=== PATIENT | female | born 1995 | race Native Hawaiian/Other Pacific Islander ===

== ENCOUNTER 2019-02-10 01:09 | Emergency (ER) | payer MEDICAID ==
[2019-02-10 01:37] VITALS: BP 113/78
--- NOTE | 2019-02-10 02:39 | Emergency Department Report ---
ED ENT HPI - General Chief complaint: Dental/Oral Stated complaint: FACE AND NECK PAIN Time Seen by Provider: 02/10/19 02:32 Source: patient Mode of arrival: Ambulatory Limitations: No Limitations - History of Present Illness Initial comments: 23-year-old female presents to the emergency room for right sided toothache that radiates to the neck and face 2 days. Patient denies any fever chills. Patient reports she's been taken ibuprofen is not helping with her pain. Patient does have braces on. Patient reports she is aware that she has a tooth that needs to be repaired. MD complaint: tooth pain Onset/Timin -: days(s) Location: tooth # (30) Quality: stabbing, aching, sharp Improves with: none Worsens with: eating Context- Dental: poor dental care Associated Symptoms: gum swelling, toothache - Related Data Previous Rx's Medication Instructions Recorded Last Taken Type Cyclobenzaprine [Flexeril 10 MG 10 mg PO TID PRN #12 tab 05/18/13 Unknown Rx TAB] Diazepam [Valium] 10 mg PO Q8H PRN #10 tablet 05/18/13 Unknown Rx traMADol [Ultram 50 MG tab] 1 tab PO Q6H PRN #12 tablet 06/08/13 Unknown Rx Amoxicillin [Trimox] 250 mg PO Q8HR #30 capsule 02/10/19 Unknown Rx Ibuprofen [Motrin 600 MG tab] 600 mg PO Q8H PRN #15 tablet 02/10/19 Unknown Rx Allergies Allergy/AdvReac Type Severity Reaction Status Date / Time No Known Allergies Allergy Unverified 05/18/13 20:11 ED Dental HPI - General Chief complaint: Dental/Oral Stated complaint: FACE AND NECK PAIN Time Seen by Provider: 02/10/19 02:32 Source: patient Mode of arrival: Ambulatory Limitations: No Limitations - Related Data Previous Rx's Medication Instructions Recorded Last Taken Type Cyclobenzaprine [Flexeril 10 MG 10 mg PO TID PRN #12 tab 05/18/13 Unknown Rx TAB] Diazepam [Valium] 10 mg PO Q8H PRN #10 tablet 05/18/13 Unknown Rx traMADol [Ultram 50 MG tab] 1 tab PO Q6H PRN #12 tablet 06/08/13 Unknown Rx Amoxicillin [Trimox] 250 mg PO Q8HR #30 capsule 02/10/19 Unknown Rx Ibuprofen [Motrin 600 MG tab] 600 mg PO Q8H PRN #15 tablet 02/10/19 Unknown Rx Allergies Allergy/AdvReac Type Severity Reaction Status Date / Time No Known Allergies Allergy Unverified 05/18/13 20:11 ED Review of Systems ROS: Stated complaint: FACE AND NECK PAIN Other details as noted in HPI Comment: All other systems reviewed and negative ENT: dental pain ED Past Medical Hx - Past Medical History Previous Medical History?: No Additional medical history: torticolosis - Surgical History Past Surgical History?: No - Social History Smoking Status: Never Smoker Substance Use Type: None - Medications Home Medications: Home Medications Medication Instructions Recorded Confirmed Last Taken Type Cyclobenzaprine [Flexeril 10 MG 10 mg PO TID PRN #12 tab 05/18/13 05/18/13 Unknown Rx TAB] Diazepam [Valium] 10 mg PO Q8H PRN #10 tablet 05/18/13 Unknown Rx traMADol [Ultram 50 MG tab] 1 tab PO Q6H PRN #12 tablet 06/08/13 Unknown Rx Amoxicillin [Trimox] 250 mg PO Q8HR #30 capsule 02/10/19 Unknown Rx Ibuprofen [Motrin 600 MG tab] 600 mg PO Q8H PRN #15 tablet 02/10/19 Unknown Rx ED Physical Exam - General Limitations: No Limitations General appearance: alert, in no apparent distress - Head Head exam: Present: atraumatic, normocephalic - Eye Eye exam: Present: normal appearance - Expanded ENT Exam Expanded Teeth exam: Present: dental caries ED Course Vital Signs 02/10/19 01:32 Temperature 97.5 F L Pulse Rate 80 Respiratory 18 Rate Blood Pressure 113/78 O2 Sat by Pulse 100 Oximetry ED Medical Decision Making - Medical Decision Making 23-year-old female comes in for dental pain. Patient states since then gone on for 2 days. She's taken ibuprofen with no relief. Patient currently has braces on. Patient be placed on amoxicillin ibuprofen and to follow-up with her primary dentist Critical care attestation.: If time is entered above; I have spent that time in minutes in the direct care of this critically ill patient, excluding procedure time. ED Disposition Clinical Impression: Pain, dental Disposition: DC- TO HOME OR SELFCARE Is pt being admited?: No Does the pt Need Aspirin: No Condition: Stable Instructions: Toothache (ED) Additional Instructions: Complete antibiotics as prescribed. Pain medication as needed. Follow up with her dentist in the next 3-4 days. Prescriptions: Amoxicillin [Trimox] 250 mg PO Q8HR #30 capsule Ibuprofen [Motrin 600 MG tab] 600 mg PO Q8H PRN #15 tablet PRN Reason: Pain Referrals: MAURA WILBURN MD [Primary Care Provider] - 3-5 Days [facility] [Outside] - 3-5 Days
== END 2019-02-10 03:17 | disposition home or self-care (01) ==
LOC: ED 01:09
DX: K08.89 Other specified disorders of teeth and supporting structures (principal)
CPT/HCPCS: 99282

== ENCOUNTER 2019-02-17 12:40 | Emergency (ER) | payer MEDICAID ==
--- NOTE | 2019-02-17 12:51 | Emergency Department Report ---
Blank Doc - Documentation Documentation: 23 y o female presents with left sided chest pain radiating down her left arm w ith numbness feeling to arm x 30 mins ago PMH: none labs, ekg, cxr Works at [employer] [facility] eval
[2019-02-17 13:37] LABS: Basophils % (Auto) 0.4 % (0.0-1.8); Eosinophils % (Auto) 0.3 % (0.0-4.3); Hematocrit 42.4 % (30.3-42.9); Hemoglobin 14.5 gm/dl (10.1-14.3); Lymphocytes # (Auto) 1.6 K/mm3 (1.2-5.4); Lymphocytes % (Auto) 18.1 % (13.4-35.0); Mean Corpuscular HGB Conc 34 % (30-34); Mean Corpuscular Volume 84 fl (79-97); Monocytes # (Auto) 0.5 K/mm3 (0.0-0.8); Monocytes % (Auto) 5.5 % (0.0-7.3); Platelet Count 256 K/mm3 (140-440); Red Blood Count 5.06 M/mm3 (3.65-5.03); Red Cell Distribution Width 13.1 % (13.2-15.2)
--- NOTE | 2019-02-17 13:53 | Emergency Department Report ---
ED Chest Pain HPI - General Chief Complaint: Chest Pain Stated Complaint: CHEST PAIN/L ARM PAIN Time Seen by Provider: 02/17/19 12:48 Source: patient Mode of arrival: Ambulatory Limitations: No Limitations - History of Present Illness Initial Comments: 23-year-old female presents to the emergency department with a complaint of some intermittent left-sided chest pains have been going on for the past few days. She denies any trauma or injury to the area. Sometimes the pain worsen or come on with certain movements including turning the steering wheel while driving or lifting her left arm up into the air. She says that the pain will sometimes radiate towards the left arm. She denies any past medical history. She denies any tobacco or illicit drug use. She has not taken anything for her symptoms prior to presentation. No recent travel or sick contacts at home. - Related Data Previous Rx's Medication Instructions Recorded Last Taken Type Cyclobenzaprine [Flexeril 10 MG 10 mg PO TID PRN #12 tab 05/18/13 Unknown Rx TAB] Diazepam [Valium] 10 mg PO Q8H PRN #10 tablet 05/18/13 Unknown Rx traMADol [Ultram 50 MG tab] 1 tab PO Q6H PRN #12 tablet 06/08/13 Unknown Rx Amoxicillin [Trimox] 250 mg PO Q8HR #30 capsule 02/10/19 Unknown Rx Ibuprofen [Motrin 600 MG tab] 600 mg PO Q8H PRN #15 tablet 02/10/19 Unknown Rx Allergies Allergy/AdvReac Type Severity Reaction Status Date / Time No Known Allergies Allergy Unverified 05/18/13 20:11 Heart Score - HEART Score History: Slightly suspicious EKG: Normal Age: < 45 Risk factors: No known risk factors Troponin: < normal limit HEART Score: 0 - Critical Actions Critical Actions: 0-3 pts:0.9-1.7%risk of adverse cardiac event.Candidate for discharge ED Review of Systems ROS: Stated complaint: CHEST PAIN/L ARM PAIN Other details as noted in HPI Comment: All other systems reviewed and negative Constitutional: denies: chills, fever Eyes: denies: eye pain, vision change ENT: denies: ear pain, throat pain Respiratory: denies: cough, wheezing Cardiovascular: chest pain. denies: palpitations Gastrointestinal: denies: abdominal pain, vomiting Genitourinary: denies: dysuria, discharge Musculoskeletal: denies: back pain, arthralgia Skin: denies: rash, lesions Neurological: denies: headache, weakness ED Past Medical Hx - Past Medical History Previous Medical History?: No Additional medical history: torticolosis - Surgical History Past Surgical History?: No - Social History Smoking Status: Never Smoker Substance Use Type: None - Medications Home Medications: Home Medications Medication Instructions Recorded Confirmed Last Taken Type Cyclobenzaprine [Flexeril 10 MG 10 mg PO TID PRN #12 tab 05/18/13 05/18/13 Unknown Rx TAB] Diazepam [Valium] 10 mg PO Q8H PRN #10 tablet 05/18/13 Unknown Rx traMADol [Ultram 50 MG tab] 1 tab PO Q6H PRN #12 tablet 06/08/13 Unknown Rx Amoxicillin [Trimox] 250 mg PO Q8HR #30 capsule 02/10/19 Unknown Rx Ibuprofen [Motrin 600 MG tab] 600 mg PO Q8H PRN #15 tablet 02/10/19 Unknown Rx ED Physical Exam - General Limitations: No Limitations - Other Other exam information: GENERAL: The patient is well-developed well-nourished. HENT: Normocephalic. Atraumatic. Patient has moist mucous membranes. EYES: Extraocular motions are intact. Pupils equal reactive to light bilaterally. NECK: Supple. Trachea is midline. CHEST/LUNGS: Clear to auscultation. There is no respiratory distress noted. There is some reproducible tenderness to palpation along the chest wall without any crepitus or deformity. HEART/CARDIOVASCULAR: Regular. There is no tachycardia. There is no murmur. ABDOMEN: Abdomen is soft, nontender. Patient has normal bowel sounds. There is no abdominal distention. SKIN: Skin is warm and dry. NEURO: The patient is awake, alert, and oriented. The patient is cooperative. The patient has no focal neurologic deficits. The patient has normal speech. MUSCULOSKELETAL: There is no tenderness or deformity. There is no limitation range of motion. Radial pulse +2 over 4 and capillary refill less than 2 s econds to the affected left upper extremity. ED Course Vital Signs 02/17/19 02/17/19 12:48 15:16 Temperature 97.5 F L 98.2 F Pulse Rate 84 86 Respiratory 20 16 Rate Blood Pressure 112/57 Blood Pressure 104/64 [Left] O2 Sat by Pulse 99 100 Oximetry KIM score - Kim Score Age > 65: (0) No Aspirin use within the Past 7 Days: (0) No 3 or more CAD Risk Factors: (0) No 2 or more Angina events in past 24 hrs: (1) Yes (if the pain is considered angina, which is low suspicion for) Known CAD with more than 50% Stenosis: (0) No Elevated Cardiac Markers: (0) No ST Deviation Greater than 0.5mm: (0) No KIM Score: 1 ED Medical Decision Making - Lab Data Result diagrams: 02/17/19 13:06 02/17/19 13:06 - EKG Data -: EKG Interpreted by Me EKG shows normal: sinus rhythm, axis, intervals, QRS complexes, ST-T waves Rate: normal - EKG Data When compared to previous EKG there are: previous EKG unavailable Interpretation: normal EKG - Radiology Data Radiology results: image reviewed interpreted by me: Chest x-ray does not show any acute process. There are no pleural effusions, obvious pneumonia and there is no pneumothorax. - Medical Decision Making This patient presents with a few days of some left-sided chest pain and some lef t arm pain that appears to worsen with certain movements. It is also reproducible to palpation during examination. Heart and lung sounds are normal to auscultation. EKG is normal without any signs of ST elevation MA, ischemia or dysrhythmia. Chest x-ray was also normal without any pneumothorax, pneumonia, pleural effusions, focal consolidation, or any acute process. Patient's labs were unremarkable including a CBC, metabolic panel and a troponin. The patient is low on the well's score criteria and negative on the pulmonary embolism rule out criteria. She is low/negative on the heart score and KIM score. The patient appears safe for discharge home. She was given a shot of Toradol and is feeling improvement upon reevaluation. Vital signs stable throughout her ED course. She will return to the ER with any worsening of her symptoms or any acute distress. - Differential Diagnosis costochondritis, muscle spasm, MA, GERD Critical Care Time: No Critical care attestation.: If time is entered above; I have spent that time in minutes in the direct care of this critically ill patient, excluding procedure time. ED Disposition Clinical Impression: Atypical chest pain, Musculoskeletal chest pain Disposition: TO HOME OR SELFCARE Is pt being admited?: No Condition: Stable Instructions: Noncardiac Chest Pain (ED) Additional Instructions: Please follow up with a primary care physician in the next few days. Return to the emergency Department with any worsening of your symptoms or any acute distress. Referrals: JOANA GUTIERREZ MD [Staff Physician] - 2-3 Days [facility] [Outside] - 2-3 Days Time of Disposition: 15:13
[2019-02-17 14:10] LABS: BUN/Creatinine Ratio 15; Blood Urea Nitrogen 9 mg/dL (7-17); Calcium 9.6 mg/dL (8.4-10.2); Hemolysis Index 14
[2019-02-17] MEDS ORDERED: TORADOL IM ONE (14:28)
--- NOTE | 2019-02-17 15:10 | XRay Report ---
PROCEDURE: XR CHEST ROUTINE 2V TECHNIQUE: PA and lateral chest radiographs were obtained. HISTORY: Chest Pain COMPARISONS: None. FINDINGS: Heart: Normal. Mediastinum/Vessels: Normal. Lungs/Pleural space: Normal. Bony thorax: No acute osseous abnormality. IMPRESSION: Normal examination. This document is electronically signed by Reuben Moctezuma MD., February 17 2019 03:08:58 PM ET
[2019-02-17 15:17] VITALS: BP 104/64
== END 2019-02-17 15:30 | disposition home or self-care (01) ==
LOC: ED 12:40
DX: R07.89 Other chest pain (principal); Z79.899 Other long term (current) drug therapy
CPT/HCPCS: 36415; 71046; 80048; 84484; 84703; 85025; 93005; 93010; 96372; 99283; J1885

== ENCOUNTER 2019-03-24 07:15 | Emergency (ER) | payer MEDICAID ==
[2019-03-24 07:29] VITALS: BP 129/84
== END 2019-03-24 09:05 | disposition left against medical advice (07) ==
LOC: ED 07:15
DX: M43.6 Torticollis (principal); Z53.21 Procedure and treatment not carried out due to patient leaving prior to being seen by health care provider

== ENCOUNTER 2019-03-24 10:32 | Emergency (ER) | payer MEDICAID ==
[2019-03-24 10:40] VITALS: BP 128/69
--- NOTE | 2019-03-24 12:12 | Emergency Department Report ---
ED General Adult HPI - General Chief complaint: Neck Pain/Injury Stated complaint: NECK/HEADACHE PAIN Time Seen by Provider: 03/24/19 12:07 Source: patient Mode of arrival: Ambulatory Limitations: No Limitations - History of Present Illness Initial comments: Patient reports symptoms of nausea, chills, periodic headaches, and some neck stiffness for approximately 2 days. Denies fever. Denies sick contacts. Denies IVDA. -: Gradual, days(s) (approximately 2-3 days) Location: head, neck Radiation: non-radiation Severity scale (0 -10): 1 Quality: aching Consistency: intermittent Improves with: medication (Reports taking Motrin which helps improve symptoms) Worsens with: none Associated Symptoms: headaches, other (reports chills, and nausea). denies: confusion, chest pain, cough, diaphoresis, malaise, rash, seizure, shortness of breath, syncope, weakness - Related Data Previous Rx's Medication Instructions Recorded Last Taken Type Cyclobenzaprine [Flexeril 10 MG 10 mg PO TID PRN #12 tab 05/18/13 Unknown Rx TAB] Diazepam [Valium] 10 mg PO Q8H PRN #10 tablet 05/18/13 Unknown Rx traMADol [Ultram 50 MG tab] 1 tab PO Q6H PRN #12 tablet 06/08/13 Unknown Rx Amoxicillin [Trimox] 250 mg PO Q8HR #30 capsule 02/10/19 Unknown Rx Ibuprofen [Motrin 600 MG tab] 600 mg PO Q8H PRN #15 tablet 02/10/19 Unknown Rx Ibuprofen [Motrin] 400 mg PO Q6H PRN #20 tablet 03/24/19 Unknown Rx Allergies Allergy/AdvReac Type Severity Reaction Status Date / Time No Known Allergies Allergy Unverified 05/18/13 20:11 ED Review of Systems ROS: Stated complaint: NECK/HEADACHE PAIN Other details as noted in HPI Other: GENERAL: Chills. No weight change, fatigue, weakness, fever, or night sweats SKIN: No changes in skin or hair, no itching, no rashes, no jaundice HEAD: No trauma, headache, or visual changes EYES: No blurriness, tearing, itching, acute visual loss, conjunctival discoloration, or scleral icterus EARS: No hearing loss, tinnitus, vertigo, or earache NOSE: No rhinorrhea, stuffiness, sneezing, itching, or epistaxis MOUTH: No bleeding gums, hoarseness, sore throat, or swelling CARDIAC: No new murmur, chest pain, palpitations, dyspnea on exertion, orthopnea, PND, or edema RESPIRATORY: No shortness of breath, wheeze, cough, sputum production, hemoptysis, pneumonia, asthma, bronchitis, or emphysema GI: Nausea. Reports vomited yesterday once. No dysphagia, change in bowel frequency, diarrhea, constipation, bleeding, hematemesis, melena, hematochezia, or abdominal pain URINARY: No frequency, urgency, polyuria, dysuria, hematuria, or incontinence MUSCULOSKELETAL: No muscle weakness, joint stiffness, decrease in range of motion, redness, swelling NEUROLOGIC: Headache mild. No loss of sensation, numbness, tingling, tremors, w eakness, paralysis, seizures HEMATOLOGIC: No anemia, easy bruising, bleeding, petechiae, or purpura ENDOCRINE: No hot or cold intolerance, sweating, polyuria, polydipsia or, polyphagia no thyroid problems PSYCHIATRIC: No change in mood, no anxiety, no depression GENITAL: Female: No change in menstrual regularity, no frequency or dysmenorrhea, no discharge, no bleeding ED Past Medical Hx - Past Medical History Previous Medical History?: No Additional medical history: torticolosis - Surgical History Past Surgical History?: No - Social History Smoking Status: Never Smoker - Medications Home Medications: Home Medications Medication Instructions Recorded Confirmed Last Taken Type Cyclobenzaprine [Flexeril 10 MG 10 mg PO TID PRN #12 tab 05/18/13 05/18/13 Unkno wn Rx TAB] Diazepam [Valium] 10 mg PO Q8H PRN #10 tablet 05/18/13 Unknown Rx traMADol [Ultram 50 MG tab] 1 tab PO Q6H PRN #12 tablet 06/08/13 Unknown Rx Amoxicillin [Trimox] 250 mg PO Q8HR #30 capsule 02/10/19 Unknown Rx Ibuprofen [Motrin 600 MG tab] 600 mg PO Q8H PRN #15 tablet 02/10/19 Unknown Rx Ibuprofen [Motrin] 400 mg PO Q6H PRN #20 tablet 03/24/19 Unknown Rx ED Physical Exam - General Limitations: No Limitations - Other Other exam information: GENERAL: Patient in no acute distress HEAD: Normocephalic, atraumatic EYES: PERRLA, EOM intact, no scleral icterus, no papilledema, no conjunctival hemorrhage, visual lopez and acuity wnl, NOSE: No tenderness, discharge, sinus tenderness MOUTH: No erythema, bleeding, exudate HEART: Regular rate and rhythm, no murmur, S1-S2 are auscultated, pulses are symmetric LUNGS: No wheezing, rales, rhonchi, bilateral breath sounds ABDOMEN: Normal bowel sounds, no tenderness, no rebound, no guarding, no masses, no CVA tenderness MUSCULOSKELETAL: Normal joint range of motion, no redness, no swelling, no tenderness NEUROLOGIC: GCS 15, Alert and Oriented x3, Cranial nerves intact, normal sensation, normal strength, normal gait, no cerebellar deficit, no meningeal signs SKIN: Skin is warm and dry, no wounds, no rashes EARS: No tenderness, discharge, tympanic membrane wnl ED Course Vital Signs 03/24/19 10:39 Temperature 98.1 F Pulse Rate 106 H Respiratory 18 Rate Blood Pressure 128/69 O2 Sat by Pulse 100 Oximetry ED Medical Decision Making - Medical Decision Making Patient comfortable. Plan discharge with conservative treatment possible viral syndrome and outpatient follow up. Patient agrees with plan and will return if any symptoms worsen. Critical care attestation.: If time is entered above; I have spent that time in minutes in the direct care of this critically ill patient, excluding procedure time. ED Disposition Clinical Impression: Viral syndrome Disposition: -01 TO HOME OR SELFCARE Is pt being admited?: No Condition: Stable Instructions: Viral Syndrome (ED) Prescriptions: Ibuprofen [Motrin] 400 mg PO Q6H PRN #20 tablet PRN Reason: Pain, Mild (1-3) Referrals: ADELIA ROA MD [Primary Care Provider] - 2-3 Days [facility] [Outside] - 2-3 Days Time of Disposition: 12:08
== END 2019-03-24 12:25 | disposition home or self-care (01) ==
LOC: ED 10:32
DX: B34.9 Viral infection, unspecified (principal); Z79.899 Other long term (current) drug therapy
CPT/HCPCS: 99282

== ENCOUNTER 2019-04-01 07:44 | Emergency (ER) | payer MEDICAID ==
[2019-04-01 07:50] VITALS: BP 122/72
--- NOTE | 2019-04-01 08:18 | Emergency Department Report ---
ED General Adult HPI - General Chief complaint: Allergic Reaction Stated complaint: HIVES/NECK/THROAT PAIN/CHILLS Time Seen by Provider: 04/01/19 08:10 Source: patient Mode of arrival: Ambulatory Limitations: No Limitations - History of Present Illness Initial comments: Reason is 23 years old female, nontoxic with no significant past medical history. Patient presented to the ER complaining of fever, generalized body ache, rash diffuse, runny nose cough and congestion with sore throats. Patient denied any nausea or vomiting. Patient was seen here 7 days ago and diagnosed with a viral syndrome, she stated that her symptoms improved but yesterday she started developing the current symptoms. - Related Data Previous Rx's Medication Instructions Recorded Last Taken Type Cyclobenzaprine [Flexeril 10 MG 10 mg PO TID PRN #12 tab 05/18/13 Unknown Rx TAB] Diazepam [Valium] 10 mg PO Q8H PRN #10 tablet 05/18/13 Unknown Rx traMADol [Ultram 50 MG tab] 1 tab PO Q6H PRN #12 tablet 06/08/13 Unknown Rx Amoxicillin [Trimox] 250 mg PO Q8HR #30 capsule 02/10/19 Unknown Rx Ibuprofen [Motrin 600 MG tab] 600 mg PO Q8H PRN #15 tablet 02/10/19 Unknown Rx Ibuprofen [Motrin] 400 mg PO Q6H PRN #20 tablet 03/24/19 Unknown Rx Allergies Allergy/AdvReac Type Severity Reaction Status Date / Time No Known Allergies Allergy Unverified 05/18/13 20:11 ED Review of Systems ROS: Stated complaint: HIVES/NECK/THROAT PAIN/CHILLS Other details as noted in HPI Comment: All other systems reviewed and negative Constitutional: chills, fever ENT: throat pain, congestion Respiratory: cough Cardiovascular: denies: chest pain, palpitations Gastrointestinal: denies: abdominal pain, nausea, vomiting Skin: rash ED Past Medical Hx - Past Medical History Previous Medical History?: No Additional medical history: torticolosis - Surgical History Past Surgical History?: No - Social History Smoking Status: Never Smoker Substance Use Type: None - Medications Home Medications: Home Medications Medication Instructions Recorded Confirmed Last Taken Type Cyclobenzaprine [Flexeril 10 MG 10 mg PO TID PRN #12 tab 05/18/13 05/18/13 Unknown Rx TAB] Diazepam [Valium] 10 mg PO Q8H PRN #10 tablet 05/18/13 Unknown Rx traMADol [Ultram 50 MG tab] 1 tab PO Q6H PRN #12 tablet 06/08/13 Unknown Rx Amoxicillin [Trimox] 250 mg PO Q8HR #30 capsule 02/10/19 Unknown Rx Ibuprofen [Motrin 600 MG tab] 600 mg PO Q8H PRN #15 tablet 02/10/19 Unknown Rx Ibuprofen [Motrin] 400 mg PO Q6H PRN #20 tablet 03/24/19 Unknown Rx ED Physical Exam - General Limitations: No Limitations General appearance: alert, in no apparent distress - Head Head exam: Present: atraumatic, normocephalic, normal inspection - Eye Eye exam: Present: normal appearance - ENT ENT exam: Present: normal exam, normal orophraynx, mucous membranes moist - Neck Neck exam: Present: normal inspection, full ROM. Absent: tenderness, meningismus, lymphadenopathy, thyromegaly - Respiratory Respiratory exam: Present: normal lung sounds bilaterally - Cardiovascular Cardiovascular Exam: Present: regular rate, normal rhythm, normal heart sounds - GI/Abdominal GI/Abdominal exam: Present: soft. Absent: distended, tenderness, guarding, rebound - Back Exam Back exam: Absent: CVA tenderness (R), CVA tenderness (L) - Neurological Exam Neurological exam: Present: alert, oriented X3, CN II-XII intact, normal gait, reflexes normal - Skin Skin exam: Present: dry, intact, rash, urticaria ED Course Vital Signs 04/01/19 07:48 Temperature 97.9 F Pulse Rate 115 H Respiratory 18 Rate Blood Pressure 122/72 O2 Sat by Pulse 99 Oximetry ED Medical Decision Making - Lab Data Result diagrams: 04/01/19 08:25 04/01/19 08:24 - Medical Decision Making Reason is 23 years old female, nontoxic with no significant past medical history. Patient presented to the ER complaining of fever, generalized body ache, rash diffuse, runny nose cough and congestion with sore throats. Patient denied any nausea or vomiting. Patient was seen here 7 days ago and diagnosed with a viral syndrome, she stated that her symptoms improved but yesterday she started developing the current symptoms. Strip this is negative. Labs reviewed and is unremarkable. Patient will be started on amoxicillin twice a day for 7 days and advised to follow-up with her primary care physician in the next 2-3 days. Critical care attestation.: If time is entered above; I have spent that time in minutes in the direct care o f this critically ill patient, excluding procedure time. ED Disposition Clinical Impression: Acute bronchitis Disposition: DC-01 TO HOME OR SELFCARE Is pt being admited?: No Condition: Stable Instructions: Acute Bronchitis (ED) Referrals: ADELIA ROA MD [Primary Care Provider] - 3-5 Days
[2019-04-01 08:52] LABS: Hematocrit 38.8 % (30.3-42.9); Hemoglobin 13.2 gm/dl (10.1-14.3); Mean Corpuscular HGB Conc 34 % (30-34); Mean Corpuscular Hemoglobin 29 pg (28-32); Mean Corpuscular Volume 85 fl (79-97); Platelet Count 173 K/mm3 (140-440); Red Blood Count 4.57 M/mm3 (3.65-5.03); Red Cell Distribution Width 13.4 % (13.2-15.2)
[2019-04-01 09:12] LABS: Alanine Aminotransferase 25 units/L (7-56); Albumin 4.3 g/dL (3.9-5); BUN/Creatinine Ratio 12; Blood Urea Nitrogen 7 mg/dL (7-17); Calcium 8.7 mg/dL (8.4-10.2); Hemolysis Index 0
[2019-04-01 10:03] LABS: Basophils % (Manual) 0 % (0.0-1.8); Eosinophils % (Manual) 0 % (0.0-4.3); Total Cells Counted 100
[2019-04-01 10:04] LABS: Platelet Estimate Consistent w Auto; RBC Morphology Normal
== END 2019-04-01 09:42 | disposition home or self-care (01) ==
LOC: ED 07:44
DX: J20.9 Acute bronchitis, unspecified (principal); J02.9 Acute pharyngitis, unspecified; Z79.899 Other long term (current) drug therapy
CPT/HCPCS: 36415; 80053; 84703; 85007; 85025; 87116; 87430; 99283

== ENCOUNTER 2019-06-21 20:51 | Emergency (ER) | payer MEDICAID ==
--- NOTE | 2019-06-21 22:03 | Event Note ---
ED Screening Note Date of service: 06/21/19 Time: 22:00 ED Screening Note: 23 y/o female comes in for left leg pain s/p fall yesterday. Pain 7/10 sharp "feels like a Antonio horse". LMP 06/18/13. This initial assessment/diagnostic orders/clinical plan/treatment(s) is/are subject to change based on patients health status, clinical progression and re- assessment by fellow clinical providers in the ED. Further treatment and workup at subsequent clinical providers discretion. Patient/guardian urged not to elope from the ED as their condition may be serious if not clinically assessed and managed. Initial orders include:
[2019-06-21] MEDS ORDERED: HYDROcodone/ACETAMINOPHEN 5-325 MG TAB PO ONE (22:38)
[2019-06-21] MEDS ORDERED: IBUPROFEN 400 MG TAB PO ONE (22:38)
[2019-06-21] MEDS ORDERED: ONDANSETRON 4 MG ODT TAB PO ONE (22:39)
[2019-06-21] MEDS ORDERED: THIAMINE 100 MG, FOLIC ACID 1 MG, MULTIPLE VITAMIN INJ, ADULT 10 ML in SODIUM CHLORIDE ... IV ONE (23:13)
--- NOTE | 2019-06-21 23:15 | XRay Report ---
XR LEFT KNEE 3 VIEWS INDICATION / CLINICAL INFORMATION: left knee pain s/p fall. COMPARISON: None available. FINDINGS: BONES / JOINT(S): No acute displaced fracture or subluxation. Mild edema is noted in Hoffa's fat pad. There is a possible trace suprapatellar effusion. There is an eccentric lucent lesion with sclerotic margin along the posterior distal femoral metaphysis, benign-appearing and may represent a nonossify ing fibroma. SOFT TISSUES: No significant abnormality. ADDITIONAL FINDINGS: None. IMPRESSION: 1. No acute displaced fracture identified. 2. Mild edema in Hoffa's fat pad. 3. 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 Signer Name: Erica Goldstein MD Signed: 06/21/2019 11:11 PM Workstation Name: [id number]
--- NOTE | 2019-06-21 23:44 | Emergency Department Report ---
ED Fall HPI - General Chief Complaint: Dizziness Stated Complaint: LEFT LEG KNEE PAIN, NUMBNESS AND DIZZINESS Time Seen by Provider: 06/21/19 22:00 Source: patient Mode of arrival: Ambulatory - History of Present Illness Initial Comments: Patient is a 23-year-old female with no past medical history who presents to the ED with complaint of acute onset persistent severe left knee pain after she slipped and fell down landing on the left knee 24 hours ago. Patient denies head or neck injuries, back pain, hip pain, dizziness, syncope, seizures, numbness and tingling or weakness of left leg or loss of consciousness. Patient states that the pain is worse with ambulation and that she is unable to bear weight adequately because of pain. MD Complaint: fall, other (left knee pain) -: Sudden, hour(s) (24) Fall From: standing, other (slipped and fell down, landed on left knee) When Fall Occurred: 24 hours [employer] Fall Witnessed: yes, by family Place Fall Occurred: home Loss of Consciousness: none Prolonged Down Time?: no Symptoms Prior to Fall: none Location: other (left knee) Location - Extremities: Left: Knee (pain) Severity: severe Severity scale (0 -10): 7 Quality: sharp, aching Context: tripped/slipped Associated Symptoms: denies. denies: headache, neck pain, numbness, weakness, chest paint, unable to walk, lightheaded, vertigo, confusion - Related Data Previous Rx's Medication Instructions Recorded Last Taken Type Cyclobenzaprine [Flexeril 10 MG 10 mg PO TID PRN #12 tab 05/18/13 Unknown Rx TAB] Diazepam [Valium] 10 mg PO Q8H PRN #10 tablet 05/18/13 Unknown Rx traMADol [Ultram 50 MG tab] 1 tab PO Q6H PRN #12 tablet 06/08/13 Unknown Rx Amoxicillin [Trimox] 250 mg PO Q8HR #30 capsule 02/10/19 Unknown Rx Ibuprofen [Motrin 600 MG tab] 600 mg PO Q8H PRN #15 tablet 02/10/19 Unknown Rx Ibuprofen [Motrin] 400 mg PO Q6H PRN #20 tablet 03/24/19 Unknown Rx Amoxicillin [Amoxicillin TAB] 875 mg PO BID #14 tablet 04/01/19 Unknown Rx guaiFENesin [Robitussin] 5 ml PO TID PRN #100 ml 04/01/19 Unknown Rx Ibuprofen [Motrin] 600 mg PO Q8H PRN #20 tablet 06/21/19 Unknown Rx tiZANidine [Zanaflex 4mg TAB] 4 mg PO Q8H PRN #15 tablet 06/21/19 Unknown Rx traMADol [Ultram] 50 mg PO Q4HR PRN #12 tablet 06/21/19 Unknown Rx Allergies Allergy/AdvReac Type Severity Reaction Status Date / Time No Known Allergies Allergy Unverified 05/18/13 20:11 ED Review of Systems ROS: Stated complaint: LEFT LEG KNEE PAIN, NUMBNESS AND DIZZINESS Other details as noted in HPI Constitutional: denies: chills, fever Eyes: denies: eye pain, eye discharge, vision change ENT: denies: ear pain, throat pain Respiratory: denies: cough, shortness of breath, wheezing Cardiovascular: denies: chest pain, palpitations Endocrine: no symptoms reported Gastrointestinal: denies: abdominal pain, nausea, diarrhea Genitourinary: denies: urgency, dysuria, discharge Musculoskeletal: joint swelling (LEFT KNEE), arthralgia (LEFT KNEE), myalgia. denies: back pain Skin: denies: rash, lesions Neurological: denies: headache, weakness, paresthesias Psychiatric: denies: anxiety, depression Hematological/Lymphatic: denies: easy bleeding, easy bruising ED Past Medical Hx - Past Medical History Additional medical history: torticolosis - Surgical History Past Surgical History?: No - Social History Smoking Status: Never Smoker Substance Use Type: None - Medications Home Medications: Home Medications Medication Instructions Recorded Confirmed Last Taken Type Cyclobenzaprine [Flexeril 10 MG 10 mg PO TID PRN #12 tab 05/18/13 05/18/13 Unknown Rx TAB] Diazepam [Valium] 10 mg PO Q8H PRN #10 tablet 05/18/13 Unknown Rx traMADol [Ultram 50 MG tab] 1 tab PO Q6H PRN #12 tablet 06/08/13 Unknown Rx Amoxicillin [Trimox] 250 mg PO Q8HR #30 capsule 02/10/19 Unknown Rx Ibuprofen [Motrin 600 MG tab] 600 mg PO Q8H PRN #15 tablet 02/10/19 Unknown Rx Ibuprofen [Motrin] 400 mg PO Q6H PRN #20 tablet 03/24/19 Unknown Rx Amoxicillin [Amoxicillin TAB] 875 mg PO BID #14 tablet 04/01/19 Unknown Rx guaiFENesin [Robitussin] 5 ml PO TID PRN #100 ml 04/01/19 Unknown Rx Ibuprofen [Motrin] 600 mg PO Q8H PRN #20 tablet 06/21/19 Unknown Rx tiZANidine [Zanaflex 4mg TAB] 4 mg PO Q8H PRN #15 tablet 06/21/19 Unknown Rx traMADol [Ultram] 50 mg PO Q4HR PRN #12 tablet 06/21/19 Unknown Rx ED Physical Exam - General Limitations: No Limitations General appearance: alert, in no apparent distress - Head Head exam: Present: atraumatic, normocephalic, normal inspection - Eye Eye exam: Present: normal appearance, PERRL, EOMI Pupils: Present: normal accommodation - ENT ENT exam: Present: normal exam, normal orophraynx, mucous membranes moist, TM's normal bilaterally, normal external ear exam - Neck Neck exam: Present: normal inspection, full ROM - Respiratory Respiratory exam: Present: normal lung sounds bilaterally. Absent: respiratory distress, wheezes, chest wall tenderness, accessory muscle use, decreased breath sounds, prolonged expiratory - Cardiovascular Cardiovascular Exam: Present: regular rate, normal rhythm, normal heart sounds. Absent: systolic murmur, diastolic murmur, rubs, gallop - GI/Abdominal GI/Abdominal exam: Present: soft, normal bowel sounds - Extremities Exam Extremities exam: Present: normal inspection, tenderness (LEFT KNEE), normal capillary refill, joint swelling (left knee). Absent: full ROM (Limited ROM due to pain) - Back Exam Back exam: Present: normal inspection, full ROM. Absent: tenderness, CVA tenderness (R), CVA tenderness (L), muscle spasm, paraspinal tenderness, vertebral tenderness - Neurological Exam Neurological exam: Present: alert, oriented X3, CN II-XII intact, normal gait, reflexes normal - Psychiatric Psychiatric exam: Present: normal affect, normal mood - Skin Skin exam: Present: warm, dry, intact, normal color. Absent: rash ED Course Vital Signs 06/21/19 06/21/19 21:06 23:54 Temperature 98.7 F Pulse Rate 90 Respiratory 16 16 Rate Blood Pressure 110/70 O2 Sat by Pulse 98 Oximetry - Reevaluation(s) Reevaluation #1: 06/22/19 00:10 This is a 23-year-old female who presented to the ED with complaint of acute onset persistence severe left knee pain after 60 slipped and fell 24 hours ago. Patient states that that she landed on the left knee. In the ED, patient is alert and oriented 3 and is not in distress, but appears to be in pain. Patient was treated for pain in the left knee x-ray shows no acute fractures or subluxations. Patient's left knee was splinted Alex wrap and patient discharged home on pain medications and muscle relaxants and also states given crutches to aid in ambulation. Patient was discharged home and advised to return to the ED immediately if symptoms get worse. Patient was otherwise advised to follow-up with her primary care physician in 7-10 days for reevaluation. ED Medical Decision Making - Radiology Data Radiology results: report reviewed, image reviewed Left knee x-ray shows no acute fractures or subluxations. - Medical Decision Making This is a 23-year-old female who presented to the ED with complaint of acute onset persistence severe left knee pain after 60 slipped and fell 24 hours ago. Patient states that that she landed on the left knee. In the ED, patient is alert and oriented 3 and is not in distress, but appears to be in pain. Patient was treated for pain in the left knee x-ray shows no acute fractures or subluxations. Patient's left knee was splinted Alex wrap and patient discharged home on pain medications and muscle relaxants and also states given crutches to aid in ambulation. Patient was discharged home and advised to return to the ED immediately if symptoms get worse. Patient was otherwise advised to follow-up with her primary care physician in 7-10 days for reevaluation. - Differential Diagnosis Knee sprain; Muscle strain; knee fracture; knee contusion Critical care attestation.: If time is entered above; I have spent that time in minutes in the direct care of this critically ill patient, excluding procedure time. ED Disposition Clinical Impression: Sprain of left knee/leg Qualifiers: Encounter type: initial encounter Qualified Code(s): S83.92XA - Sprain of unspecified site of left knee, initial encounter Contusion of left knee and lower leg Qualifiers: Encounter type: initial encounter Qualified Code(s): S80.02XA - Contusion of left knee, initial encounter Disposition: DC-01 TO HOME OR SELFCARE Is pt being admited?: No Does the pt Need Aspirin: No Condition: Stable Instructions: Knee Sprain (ED), Muscle Strain (ED) Additional Instructions: Take medication with food, drink plenty of fluids and follow-up with your primary care physician in 7-10 days for reevaluation. Return to the ED immediately if symptoms get worse. Prescriptions: Ibuprofen [Motrin] 600 mg PO Q8H PRN #20 tablet PRN Reason: Pain traMADol [Ultram] 50 mg PO Q4HR PRN #12 tablet PRN Reason: Pain tiZANidine [Zanaflex 4mg TAB] 4 mg PO Q8H PRN #15 tablet PRN Reason: Muscle Spasm Referrals: PRIMARY CARE, [Primary Care Provider] - 3-5 Days Forms: Work/School Release Form(ED) Time of Disposition: 23:46 Print Language: AZERI
[2019-06-22 02:41] VITALS: BP 112/72
== END 2019-06-22 00:30 | disposition home or self-care (01) ==
LOC: ED 20:51
DX: S83.92XA Sprain of unspecified site of left knee, initial encounter (principal); S80.02XA Contusion of left knee, initial encounter; W01.0XXA Fall on same level from slipping, tripping and stumbling without subsequent striking against object, initial encounter; Y93.89 Activity, other specified; Y92.89 Other specified places as the place of occurrence of the external cause; Y99.8 Other external cause status
CPT/HCPCS: 73562; 99283; J3411; J7030; Q0162

== ENCOUNTER 2019-07-07 23:26 | Emergency (ER) | payer MEDICAID ==
[2019-07-07 23:32] VITALS: BP 103/70
[2019-07-08] MEDS ORDERED: LOPERAMIDE 2 MG CAP PO ONE (00:22)
[2019-07-08] MEDS ORDERED: ONDANSETRON 4 MG/2 ML INJ IV ONE (00:22)
[2019-07-08] MEDS ORDERED: SODIUM CHLORIDE 0.9% 1000 ML 1,000 ML IV ONE (00:22)
[2019-07-08] MEDS ORDERED: KETOROLAC 30 MG/1 ML INJ IV ONE (00:23)
--- NOTE | 2019-07-08 00:26 | Emergency Department Report ---
ED N/V/D HPI - General Chief complaint: Abdominal Pain Stated complaint: N/V/D Time Seen by Provider: 07/08/19 00:06 Source: patient Mode of arrival: Ambulatory Limitations: No Limitations - History of Present Illness Initial comments: 23-year-old female presents to ED with nausea, vomiting, diarrhea since this morning. Reports one episode of emesis, multiple episodes of diarrhea. Patient reports epigastric abdominal pain. Denies fever. Patient states her daughter has had diarrhea yesterday, possible cause of her own symptoms. MD complaint: nausea, vomiting, diarrhea, abdominal pain -: This morning Description of Vomiting: food contents Description of Diarrhea: water Associated Abdominal Pain: Yes Location: epigastric Radiation: none Severity: moderate Quality: cramping Consistency: constant Improves with: none Worsens with: eating Context: sick contacts Associated Symptoms: nausea/vomiting. denies: fever/chills - Related Data Previous Rx's Medication Instructions Recorded Last Taken Type Cyclobenzaprine [Flexeril 10 MG 10 mg PO TID PRN #12 tab 05/18/13 Unknown Rx TAB] Diazepam [Valium] 10 mg PO Q8H PRN #10 tablet 05/18/13 Unknown Rx traMADol [Ultram 50 MG tab] 1 tab PO Q6H PRN #12 tablet 06/08/13 Unknown Rx Amoxicillin [Trimox] 250 mg PO Q8HR #30 capsule 02/10/19 Unknown Rx Ibuprofen [Motrin 600 MG tab] 600 mg PO Q8H PRN #15 tablet 02/10/19 Unknown Rx Ibuprofen [Motrin] 400 mg PO Q6H PRN #20 tablet 03/24/19 Unknown Rx Amoxicillin [Amoxicillin TAB] 875 mg PO BID #14 tablet 04/01/19 Unknown Rx guaiFENesin [Robitussin] 5 ml PO TID PRN #100 ml 04/01/19 Unknown Rx Ibuprofen [Motrin] 600 mg PO Q8H PRN #20 tablet 06/21/19 Unknown Rx tiZANidine [Zanaflex 4mg TAB] 4 mg PO Q8H PRN #15 tablet 06/21/19 Unknown Rx traMADol [Ultram] 50 mg PO Q4HR PRN #12 tablet 06/21/19 Unknown Rx Dicyclomine [Bentyl] 20 mg PO QID PRN #20 tablet 07/08/19 Unknown Rx Ondansetron [Zofran Odt] 4 mg PO Q8HR PRN #20 tab.rapdis 07/08/19 Unknown Rx Allergies Allergy/AdvReac Type Severity Reaction Status Date / Time No Known Allergies Allergy Unverified 05/18/13 20:11 ED Review of Systems ROS: Stated complaint: N/V/D Other details as noted in HPI Comment: All other systems reviewed and negative Constitutional: denies: chills, fever Gastrointestinal: abdominal pain, nausea, vomiting, diarrhea ED Past Medical Hx - Past Medical History Previous Medical History?: Yes Additional medical history: torticolosis - Surgical History Past Surgical History?: No - Social History Smoking Status: Never Smoker Substance Use Type: None - Medications Home Medications: Home Medications Medication Instructions Recorded Confirmed Last Taken Type Cyclobenzaprine [Flexeril 10 MG 10 mg PO TID PRN #12 tab 05/18/13 05/18/13 Unknown Rx TAB] Diazepam [Valium] 10 mg PO Q8H PRN #10 tablet 05/18/13 Unknown Rx traMADol [Ultram 50 MG tab] 1 tab PO Q6H PRN #12 tablet 06/08/13 Unknown Rx Amoxicillin [Trimox] 250 mg PO Q8HR #30 capsule 02/10/19 Unknown Rx Ibuprofen [Motrin 600 MG tab] 600 mg PO Q8H PRN #15 tablet 02/10/19 Unknown Rx Ibuprofen [Motrin] 400 mg PO Q6H PRN #20 tablet 03/24/19 Unknown Rx Amoxicillin [Amoxicillin TAB] 875 mg PO BID #14 tablet 04/01/19 Unknown Rx guaiFENesin [Robitussin] 5 ml PO TID PRN #100 ml 04/01/19 Unknown Rx Ibuprofen [Motrin] 600 mg PO Q8H PRN #20 tablet 06/21/19 Unknown Rx tiZANidine [Zanaflex 4mg TAB] 4 mg PO Q8H PRN #15 tablet 06/21/19 Unknown Rx traMADol [Ultram] 50 mg PO Q4HR PRN #12 tablet 06/21/19 Unknown Rx Dicyclomine [Bentyl] 20 mg PO QID PRN #20 tablet 07/08/19 Unknown Rx Ondansetron [Zofran Odt] 4 mg PO Q8HR PRN #20 tab.rapdis 07/08/19 Unknown Rx ED Physical Exam - General Limitations: No Limitations General appearance: alert, in no apparent distress - Head Head exam: Present: atraumatic, normocephalic - Eye Eye exam: Present: normal appearance, PERRL, EOMI - ENT ENT exam: Present: mucous membranes moist - Neck Neck exam: Present: normal inspection - Respiratory Respiratory exam: Present: normal lung sounds bilaterally. Absent: respiratory distress - Cardiovascular Cardiovascular Exam: Present: normal rhythm, tachycardia - GI/Abdominal GI/Abdominal exam: Present: soft, tenderness (mild epigastric tenderness). Absent: distended - Extremities Exam Extremities exam: Present: normal inspection - Neurological Exam Neurological exam: Present: alert, oriented X3 - Psychiatric Psychiatric exam: Present: normal affect, normal mood - Skin Skin exam: Present: warm, dry, intact, normal color ED Course Vital Signs 07/07/19 23:30 Temperature 98.6 F Pulse Rate 108 H Respiratory 16 Rate Blood Pressure 103/70 O2 Sat by Pulse 97 Oximetry ED Medical Decision Making - Lab Data Result diagrams: 07/08/19 00:24 07/08/19 00:24 - Medical Decision Making - abdominal pain and diarrhea x 1 day - labs unremarkable - one episode of emesis earlier, however, pt tolerating PO - IV fluids, toradol, zofran, imodium given - pt feeling much better at this time - will d/c home; outpt f/u advised; return precautions given - Differential Diagnosis gastroenteritis, pancreatitis, dehydration Critical care attestation.: If time is entered above; I have spent that time in minutes in the direct care of this critically ill patient, excluding procedure time. ED Disposition Clinical Impression: Acute gastroenteritis Disposition: - TO HOME OR SELFCARE Is pt being admited?: No Condition: Stable Instructions: Gastroenteritis (ED) Additional Instructions: Imodium AD [id number] for diarrhea relief. Take as directed. Prescriptions: Dicyclomine [Bentyl] 20 mg PO QID PRN #20 tablet PRN Reason: abdominal pain Ondansetron [Zofran Odt] 4 mg PO Q8HR PRN #20 tab.rapdis PRN Reason: Vomiting Referrals: MAURA WILBURN MD [Primary Care Provider] - 3-5 Days Time of Disposition: 01:55
[2019-07-08 00:59] LABS: Basophils % (Auto) 0.1 % (0.0-1.8); Eosinophils # (Auto) 0.1 K/mm3 (0.0-0.4); Eosinophils % (Auto) 0.9 % (0.0-4.3); Hematocrit 43.8 % (30.3-42.9); Hemoglobin 14.5 gm/dl (10.1-14.3); Lymphocytes # (Auto) 1.2 K/mm3 (1.2-5.4); Lymphocytes % (Auto) 12.1 % (13.4-35.0); Mean Corpuscular HGB Conc 33 % (30-34); Mean Corpuscular Volume 85 fl (79-97); Monocytes # (Auto) 0.9 K/mm3 (0.0-0.8); Monocytes % (Auto) 9.3 % (0.0-7.3); Platelet Count 227 K/mm3 (140-440); Red Blood Count 5.16 M/mm3 (3.65-5.03); Red Cell Distribution Width 13.6 % (13.2-15.2)
[2019-07-08 01:23] LABS: Bilirubin,Urine NEG (Negative); Blood,Urine NEG (Negative); Color,Urine Yellow (Yellow); Protein,Urine <15 mg/dL mg/dL (Negative); Urobilinogen,Urine < 2.0 mg/dL (<2.0)
[2019-07-08 01:46] LABS: Alanine Aminotransferase 17 units/L (7-56); Albumin 4.5 g/dL (3.9-5); BUN/Creatinine Ratio 11; Blood Urea Nitrogen 8 mg/dL (7-17); Calcium 9.4 mg/dL (8.4-10.2); Hemolysis Index 0
== END 2019-07-08 02:20 | disposition home or self-care (01) ==
LOC: ED 23:26
DX: K52.9 Noninfective gastroenteritis and colitis, unspecified (principal); Z79.899 Other long term (current) drug therapy
CPT/HCPCS: 36415; 80053; 81001; 83690; 84703; 85025; 96361; 96374; 96375; 99283; J1885; J2405; J7030

== ENCOUNTER 2019-10-06 01:59 | Emergency (ER) | payer MEDICAID ==
[2019-10-06 02:14] VITALS: BP 103/61
--- NOTE | 2019-10-06 04:09 | XRay Report ---
RIGHT FOOT 3 VIEWS INDICATION / CLINICAL INFORMATION: Right second toe pain COMPARISON: None available. FINDINGS: BONES / JOINT(S): No acute fracture or subluxation. No significant arthritis. SOFT TISSUES: No significant abnormality. ADDITIONAL FINDINGS: None. Signer Name: Chris Hammer MD Signed: 10/06/2019 4:05 AM Workstation Name: [id number]
--- NOTE | 2019-10-06 04:53 | Emergency Department Report ---
ED Lower Extremity HPI - General Chief Complaint: Extremity Injury, Lower Stated Complaint: RT TOE INJURY Time Seen by Provider: 10/06/19 04:19 Source: patient Mode of arrival: Ambulatory Limitations: No Limitations - History of Present Illness MD Complaint: foot injury (24-year-old female who accidentally hit her on the bed 2 days ago was continued pain and swelling became verbal she noticed some bruising to the foot at the base of the toe) Injury: Toes: Right Type of Injury: blunt Place: home Severity: mild, moderate Improves With: nothing Worsens With: nothing Associated Symptoms: ambulatory - Related Data Previous Rx's Medication Instructions Recorded Last Taken Type Cyclobenzaprine [Flexeril 10 MG 10 mg PO TID PRN #12 tab 05/18/13 Unknown Rx TAB] Diazepam [Valium] 10 mg PO Q8H PRN #10 tablet 05/18/13 Unknown Rx traMADoL [Ultram 50 MG tab] 1 tab PO Q6H PRN #12 tablet 06/08/13 Unknown Rx Amoxicillin [Trimox] 250 mg PO Q8HR #30 capsule 02/10/19 Unknown Rx Ibuprofen [Motrin 600 MG tab] 600 mg PO Q8H PRN #15 tablet 02/10/19 Unknown Rx Ibuprofen [Motrin] 400 mg PO Q6H PRN #20 tablet 03/24/19 Unknown Rx Amoxicillin [Amoxicillin TAB] 875 mg PO BID #14 tablet 04/01/19 Unknown Rx guaiFENesin [Robitussin] 5 ml PO TID PRN #100 ml 04/01/19 Unknown Rx Ibuprofen [Motrin] 600 mg PO Q8H PRN #20 tablet 06/21/19 Unknown Rx tiZANidine [Zanaflex 4mg TAB] 4 mg PO Q8H PRN #15 tablet 06/21/19 Unknown Rx traMADoL [Ultram] 50 mg PO Q4HR PRN #12 tablet 06/21/19 Unknown Rx Dicyclomine [Bentyl] 20 mg PO QID PRN #20 tablet 07/08/19 Unknown Rx Ondansetron [Zofran Odt] 4 mg PO Q8HR PRN #20 tab.rapdis 07/08/19 Unknown Rx Allergies Allergy/AdvReac Type Severity Reaction Status Date / Time No Known Allergies Allergy Unverified 05/18/13 20:11 ED Review of Systems ROS: Stated complaint: RT TOE INJURY Other details as noted in HPI Comment: All other systems reviewed and negative ED Past Medical Hx - Past Medical History Previous Medical History?: Yes Additional medical history: torticolosis - Surgical History Past Surgical History?: Yes - Social History Smoking Status: Never Smoker Substance Use Type: None - Medications Home Medications: Home Medications Medication Instructions Recorded Confirmed Last Taken Type Cyclobenzaprine [Flexeril 10 MG 10 mg PO TID PRN #12 tab 05/18/13 05/18/13 Unknown Rx TAB] Diazepam [Valium] 10 mg PO Q8H PRN #10 tablet 05/18/13 Unknown Rx traMADoL [Ultram 50 MG tab] 1 tab PO Q6H PRN #12 tablet 06/08/13 Unknown Rx Amoxicillin [Trimox] 250 mg PO Q8HR #30 capsule 02/10/19 Unknown Rx Ibuprofen [Motrin 600 MG tab] 600 mg PO Q8H PRN #15 tablet 02/10/19 Unknown Rx Ibuprofen [Motrin] 400 mg PO Q6H PRN #20 tablet 03/24/19 Unknown Rx Amoxicillin [Amoxicillin TAB] 875 mg PO BID #14 tablet 04/01/19 Unknown Rx guaiFENesin [Robitussin] 5 ml PO TID PRN #100 ml 04/01/19 Unknown Rx Ibuprofen [Motrin] 600 mg PO Q8H PRN #20 tablet 06/21/19 Unknown Rx tiZANidine [Zanaflex 4mg TAB] 4 mg PO Q8H PRN #15 tablet 06/21/19 Unknown Rx traMADoL [Ultram] 50 mg PO Q4HR PRN #12 tablet 06/21/19 Unknown Rx Dicyclomine [Bentyl] 20 mg PO QID PRN #20 tablet 07/08/19 Unknown Rx Ondansetron [Zofran Odt] 4 mg PO Q8HR PRN #20 tab.rapdis 07/08/19 Unknown Rx ED Physical Exam - General Limitations: No Limitations General appearance: alert, in no apparent distress - Head Head exam: Present: atraumatic, normocephalic - Eye Eye exam: Present: normal appearance - ENT ENT exam: Present: mucous membranes moist - Neck Neck exam: Present: normal inspection - Respiratory Respiratory exam: Present: normal lung sounds bilaterally. Absent: respiratory distress - Cardiovascular Cardiovascular Exam: Present: regular rate, normal rhythm. Absent: systolic murmur, diastolic murmur, rubs, gallop - GI/Abdominal GI/Abdominal exam: Present: soft, normal bowel sounds - Extremities Exam Extremities exam: Present: normal inspection - Expanded Lower Extremity Exam Right Foot/Toe exam: Present: tenderness, swelling, ecchymosis (at the base of the second phalange) - Back Exam Back exam: Present: normal inspection - Neurological Exam Neurological exam: Present: alert, oriented X3 - Psychiatric Psychiatric exam: Present: normal affect, normal mood - Skin Skin exam: Present: warm, dry, intact, normal color. Absent: rash ED Course Vital Signs 10/06/19 02:13 Temperature 98.1 F Pulse Rate 86 Respiratory 18 Rate Blood Pressure 103/61 O2 Sat by Pulse 97 Oximetry ED Lower Extremity MDM - Radiology Data Radiology results: report reviewed (x-ray shows no fracture) Critical care attestation.: If time is entered above; I have spent that time in minutes in the direct care of this critically ill patient, excluding procedure time. ED Disposition Clinical Impression: Toe contusion Disposition: - TO HOME OR SELFCARE Is pt being admited?: No Does the pt Need Aspirin: No Condition: Stable Instructions: Foot Contusion (ED), Ice Pack Application (ED) Referrals: PRIMARY CARE, [Primary Care Provider] - 3-5 Days [facility] [Provider Group] - 3-5 Days
== END 2019-10-06 04:43 | disposition home or self-care (01) ==
LOC: ED 01:59
DX: S90.121A Contusion of right lesser toe(s) without damage to nail, initial encounter (principal); Z79.1 Long term (current) use of non-steroidal anti-inflammatories (NSAID); Z79.2 Long term (current) use of antibiotics; Z79.899 Other long term (current) drug therapy; W22.8XXA Striking against or struck by other objects, initial encounter; Y93.89 Activity, other specified; Y92.89 Other specified places as the place of occurrence of the external cause; Y99.8 Other external cause status

== ENCOUNTER 2021-02-19 04:25 | Emergency (ER) | payer MEDICAID ==
[2021-02-19 04:56] LABS: Basophils % (Auto) 0.2 % (0.0-1.8); Eosinophils # (Auto) 0.1 K/mm3 (0.0-0.4); Eosinophils % (Auto) 1.1 % (0.0-4.3); Hematocrit 37.2 % (30.3-42.9); Hemoglobin 12.7 gm/dl (10.1-14.3); Lymphocytes # (Auto) 2.4 K/mm3 (1.2-5.4); Lymphocytes % (Auto) 22.1 % (13.4-35.0); Mean Corpuscular HGB Conc 34 % (30-34); Mean Corpuscular Volume 85 fl (79-97); Monocytes % (Auto) 9.5 % (0.0-7.3); Platelet Count 196 K/mm3 (140-440); Red Blood Count 4.37 M/mm3 (3.65-5.03); Red Cell Distribution Width 13.2 % (13.2-15.2)
[2021-02-19 05:16] VITALS: BP 117/70
[2021-02-19 05:27] LABS: BUN/Creatinine Ratio 19; Blood Urea Nitrogen 15 mg/dL (7-17); Calcium 9.1 mg/dL (8.4-10.2); Hemolysis Index 7
--- NOTE | 2021-02-19 05:56 | XRay Report ---
CHEST 2 VIEWS INDICATION / CLINICAL INFORMATION: Chest Pain. COMPARISON: 02/17/2019 FINDINGS: SUPPORT DEVICES: None. HEART / MEDIASTINUM: No significant abnormality. LUNGS / PLEURA: No significant pulmonary or pleural abnormality. No pneumothorax. ADDITIONAL FINDINGS: No significant additional findings. IMPRESSION: 1. No acute findings. Signer Name: Natalie Lebron MD Signed: 02/19/2021 5:52 AM Workstation Name: [id number]
--- NOTE | 2021-02-19 07:26 | Emergency Department Report ---
- General Chief complaint: Chest Pain Stated complaint: CHEST PAIN/LEFT BREAST PAIN Time Seen by Provider: 02/19/21 07:10 Source: patient Mode of arrival: Ambulatory Limitations: No Limitations - History of Present Illness Initial comments: This is a 25-year-old female nontoxic, well nourished in appearance, no acute signs of distress presents to the ED with c/o of redness with a nodular mass to left breast area times several days. Patient stated pain is upon palpation. Denies any pain on rest. Patient stated had her nipple pierced about 1 week ago prior to the symptoms. Patient denies any pus or drainage. Patient denies any fever, chills, nausea, vomiting, chest pain, shortness of breath, headache or stiff neck. Patient denies any allergies or significant past medical history. -: days(s) Severity: mild Severity scale (0 -10): 8 Quality: sharp Consistency: intermittent Improves with: rest Worsens with: palpation Context: none Associated symptoms: denies other symptoms - Related Data Previous Rx's Medication Instructions Recorded Last Taken Type Cyclobenzaprine [Flexeril 10 MG 10 mg PO TID PRN #12 tab 05/18/13 Unknown Rx TAB] Diazepam [Valium] 10 mg PO Q8H PRN #10 tablet 05/18/13 Unknown Rx traMADoL [Ultram 50 MG tab] 1 tab PO Q6H PRN #12 tablet 06/08/13 Unknown Rx Amoxicillin [Trimox] 250 mg PO Q8HR #30 capsule 02/10/19 Unknown Rx Ibuprofen [Motrin 600 MG tab] 600 mg PO Q8H PRN #15 tablet 02/10/19 Unknown Rx Ibuprofen [Motrin] 400 mg PO Q6H PRN #20 tablet 03/24/19 Unknown Rx Amoxicillin [Amoxicillin TAB] 875 mg PO BID #14 tablet 04/01/19 Unknown Rx guaiFENesin [Robitussin] 5 ml PO TID PRN #100 ml 04/01/19 Unknown Rx Ibuprofen [Motrin] 600 mg PO Q8H PRN #20 tablet 06/21/19 Unknown Rx tiZANidine [Zanaflex 4mg TAB] 4 mg PO Q8H PRN #15 tablet 06/21/19 Unknown Rx traMADoL [Ultram] 50 mg PO Q4HR PRN #12 tablet 06/21/19 Unknown Rx Dicyclomine [Bentyl] 20 mg PO QID PRN #20 tablet 07/08/19 Unknown Rx Ondansetron [Zofran Odt] 4 mg PO Q8HR PRN #20 tab.rapdis 07/08/19 Unknown Rx Clindamycin [Clindamycin CAP] 300 mg PO Q8H #21 cap 02/19/21 Unknown Rx Allergies Allergy/AdvReac Type Severity Reaction Status Date / Time No Known Allergies Allergy Unverified 02/19/21 04:41 Abscess Boil HPI - HPI Chief Complaint: Chest Pain Stated Complaint: CHEST PAIN/LEFT BREAST PAIN Time Seen by Provider: 02/19/21 07:10 Home Medications: Previous Rx's Medication Instructions Recorded Last Taken Type Cyclobenzaprine [Flexeril 10 MG 10 mg PO TID PRN #12 tab 05/18/13 Unknown Rx TAB] Diazepam [Valium] 10 mg PO Q8H PRN #10 tablet 05/18/13 Unknown Rx traMADoL [Ultram 50 MG tab] 1 tab PO Q6H PRN #12 tablet 06/08/13 Unknown Rx Amoxicillin [Trimox] 250 mg PO Q8HR #30 capsule 02/10/19 Unknown Rx Ibuprofen [Motrin 600 MG tab] 600 mg PO Q8H PRN #15 tablet 02/10/19 Unknown Rx Ibuprofen [Motrin] 400 mg PO Q6H PRN #20 tablet 03/24/19 Unknown Rx Amoxicillin [Amoxicillin TAB] 875 mg PO BID #14 tablet 04/01/19 Unknown Rx guaiFENesin [Robitussin] 5 ml PO TID PRN #100 ml 04/01/19 Unknown Rx Ibuprofen [Motrin] 600 mg PO Q8H PRN #20 tablet 06/21/19 Unknown Rx tiZANidine [Zanaflex 4mg TAB] 4 mg PO Q8H PRN #15 tablet 06/21/19 Unknown Rx traMADoL [Ultram] 50 mg PO Q4HR PRN #12 tablet 06/21/19 Unknown Rx Dicyclomine [Bentyl] 20 mg PO QID PRN #20 tablet 07/08/19 Unknown Rx Ondansetron [Zofran Odt] 4 mg PO Q8HR PRN #20 tab.rapdis 07/08/19 Unknown Rx Clindamycin [Clindamycin CAP] 300 mg PO Q8H #21 cap 02/19/21 Unknown Rx Allergies/Adverse Reactions: Allergies Allergy/AdvReac Type Severity Reaction Status Date / Time No Known Allergies Allergy Unverified 02/19/21 04:41 ED Review of Systems ROS: Stated complaint: CHEST PAIN/LEFT BREAST PAIN Other details as noted in HPI Comment: All other systems reviewed and negative Constitutional: denies: chills, fever Eyes: denies: eye pain, eye discharge, vision change ENT: denies: ear pain, throat pain Respiratory: denies: cough, shortness of breath, wheezing Cardiovascular: denies: chest pain, palpitations Endocrine: no symptoms reported Gastrointestinal: denies: abdominal pain, nausea, diarrhea Genitourinary: denies: urgency, dysuria, discharge Musculoskeletal: denies: back pain, joint swelling, arthralgia Skin: denies: rash, lesions Neurological: denies: headache, weakness, paresthesias Psychiatric: denies: anxiety, depression Hematological/Lymphatic: denies: easy bleeding, easy bruising ED Past Medical Hx - Past Medical History Previous Medical History?: No Additional medical history: torticolosis - Surgical History Past Surgical History?: No - Social History Smoking Status: Never Smoker Substance Use Type: None - Medications Home Medications: Home Medications Medication Instructions Recorded Confirmed Last Taken Type Cyclobenzaprine [Flexeril 10 MG 10 mg PO TID PRN #12 tab 05/18/13 05/18/13 Unknown Rx TAB] Diazepam [Valium] 10 mg PO Q8H PRN #10 tablet 05/18/13 Unknown Rx traMADoL [Ultram 50 MG tab] 1 tab PO Q6H PRN #12 tablet 06/08/13 Unknown Rx Amoxicillin [Trimox] 250 mg PO Q8HR #30 capsule 02/10/19 Unknown Rx Ibuprofen [Motrin 600 MG tab] 600 mg PO Q8H PRN #15 tablet 02/10/19 Unknown Rx Ibuprofen [Motrin] 400 mg PO Q6H PRN #20 tablet 03/24/19 Unknown Rx Amoxicillin [Amoxicillin TAB] 875 mg PO BID #14 tablet 04/01/19 Unknown Rx guaiFENesin [Robitussin] 5 ml PO TID PRN #100 ml 04/01/19 Unknown Rx Ibuprofen [Motrin] 600 mg PO Q8H PRN #20 tablet 06/21/19 Unknown Rx tiZANidine [Zanaflex 4mg TAB] 4 mg PO Q8H PRN #15 tablet 06/21/19 Unknown Rx traMADoL [Ultram] 50 mg PO Q4HR PRN #12 tablet 06/21/19 Unknown Rx Dicyclomine [Bentyl] 20 mg PO QID PRN #20 tablet 07/08/19 Unknown Rx Ondansetron [Zofran Odt] 4 mg PO Q8HR PRN #20 tab.rapdis 07/08/19 Unknown Rx Clindamycin [Clindamycin CAP] 300 mg PO Q8H #21 cap 02/19/21 Unknown Rx ED Physical Exam - General Limitations: No Limitations General appearance: alert, in no apparent distress - Head Head exam: Present: atraumatic, normocephalic - Eye Eye exam: Present: normal appearance - ENT ENT exam: Present: normal exam, normal orophraynx - Neck Neck exam: Present: normal inspection, full ROM. Absent: tenderness, meningismus, lymphadenopathy - Respiratory Respiratory exam: Present: normal lung sounds bilaterally. Absent: respiratory distress, wheezes, rales, rhonchi, stridor, chest wall tenderness, accessory muscle use, decreased breath sounds, prolonged expiratory - Cardiovascular Cardiovascular Exam: Present: regular rate, normal rhythm, normal heart sounds. Absent: bradycardia, tachycardia, irregular rhythm, systolic murmur, diastolic murmur, rubs, gallop - GI/Abdominal GI/Abdominal exam: Present: soft. Absent: distended, tenderness - Extremities Exam Extremities exam: Present: normal inspection, full ROM - Back Exam Back exam: Present: normal inspection, full ROM - Neurological Exam Neurological exam: Present: alert, oriented X3, normal gait - Psychiatric Psychiatric exam: Present: normal affect, normal mood - Skin Skin exam: Present: warm, dry, intact, normal color. Absent: rash - Expanded Skin Exam Expanded 1 - 2 cm x 2 cm mobile nodular mass with some redness. no induration or fluctuance. No pus or drainage. ED Course Vital Signs 02/19/21 04:39 Temperature 98.4 F Pulse Rate 80 Respiratory 18 Rate Blood Pressure 117/70 O2 Sat by Pulse 99 Oximetry - Reevaluation(s) Reevaluation #1: 02/19/21 07:25 Patient is speaking in full sentences with no signs of distress noted. ED Medical Decision Making - Lab Data Result diagrams: 02/19/21 04:45 02/19/21 04:45 Lab Results 02/19/21 02/19/21 02/19/21 Range/Units 04:45 04:45 04:45 WBC 10.9 (4.5-11.0) K/mm3 RBC 4.37 (3.65-5.03) M/mm3 Hgb 12.7 (10.1-14.3) gm/dl Hct 37.2 (30.3-42.9) % MCV 85 (79-97) fl MCH 29 (28-32) pg MCHC 34 (30-34) % RDW 13.2 (13.2-15.2) % Plt Count 196 (140-440) K/mm3 Lymph % (Auto) 22.1 (13.4-35.0) % [place] % (Auto) 9.5 H (0.0-7.3) % Eos % (Auto) 1.1 (0.0-4.3) % Baso % (Auto) 0.2 (0.0-1.8) % Lymph # (Auto) 2.4 (1.2-5.4) K/mm3 [place] # (Auto) 1.0 H (0.0-0.8) K/mm3 Eos # (Auto) 0.1 (0.0-0.4) K/mm3 Baso # (Auto) 0.0 (0.0-0.1) K/mm3 Seg Neutrophils % 67.1 (40.0-70.0) % Seg Neutrophils # 7.3 (1.8-7.7) K/mm3 Sodium 137 (137-145) mmol/L Potassium 3.8 (3.6-5.0) mmol/L Chloride 103.2 (98-107) mmol/L Carbon Dioxide 25 (22-30) mmol/L Anion Gap 13 mmol/L BUN 15 (7-17) mg/dL Creatinine 0.8 (0.6-1.2) mg/dL Estimated GFR > 60 ml/min BUN/Creatinine Ratio 19 % Glucose 101 H (65-100) mg/dL Calcium 9.1 (8.4-10.2) mg/dL HCG, Qual Negative (Negative) - Radiology Data [facility] [address] [place] [address] XRay Report Signed Patient: ODILIA ARIAS MR# : [id number] : 1995 Acct:[id number] Age/Sex: 25 / F ADM Date: 02/19/21 Loc: ED Attending Dr: Ordering Physician: ED MD WENDY Date of Service: 02/19/21 Procedure(s): XR chest routine 2V Accession Number(s): [id number] cc: ED MD WENDY Fluoro Time In Minutes: CHEST 2 VIEWS INDICATION / CLINICAL INFORMATION: Chest Pain. COMPARISON: 02/17/2019 FINDINGS: SUPPORT DEVICES: None. HEART / MEDIASTINUM: No significant abnormality. LUNGS / PLEURA: No significant pulmonary or pleural abnormality. No pneumothorax. ADDITIONAL FINDINGS: No significant additional findings. IMPRESSION: 1. No acute findings. Signer Name: Natalie Lebron MD Signed: 02/19/2021 5:52 AM Workstation Name: [id number] Transcribed By: JR Dictated By: Natalie Lebron MD Electronically Authenticated By: Natalie Lebron MD Signed Date/Time: 02/19/21551 DD/ 0 TD/TT: - Medical Decision Making This is a 25-year-old female that presents with cellulitis with left nodular breast mass. Patient is stable and was examined by me. There is no induration, fluctuance. No signs of abscess formation. The area has been outlined with a permanent marker and patient was instructed to observe symptoms of increased redness or swelling and to return to the ER if this does occur. I will discharg e patient with clindamycin. Patient was instructed follow-up with PCP for possible mammogram. Patient was referred to Follow-up with a primary care doctor in 3-5 days or if symptoms worsen and continue return to emergency room as soon as possible. At time of discharge, the patient does not seem toxic or ill in appearance. No acute signs of distress noted. Patient agrees to discharge treatment plan of care. No further questions noted by the patient. Critical care attestation.: If time is entered above; I have spent that time in minutes in the direct care of this critically ill patient, excluding procedure time. ED Disposition Clinical Impression: Left breast mass Cellulitis Qualifiers: Site of cellulitis: unspecified site Qualified Code(s): L03.90 - Cellulitis, unspecified Disposition: TO HOME OR SELFCARE Is pt being admited?: No Does the pt Need Aspirin: No Condition: Stable Instructions: Cellulitis, Adult, Breast Self-Awareness Additional Instructions: Follow-up with a primary care doctor in 3-5 days or if symptoms worsen and continue return to emergency room as soon as possible. Prescriptions: Clindamycin [Clindamycin CAP] 300 mg PO Q8H #21 cap Referrals: PRIMARY MD VIRGIL [Primary Care Provider] - 3-5 Days ADELIA ROA MD [Staff Physician] - 3-5 Days Forms: Work/School Release Form(ED) Time of Disposition: 07:27
== END 2021-02-19 07:54 | disposition home or self-care (01) ==
LOC: ED 04:25
DX: L03.90 Cellulitis, unspecified (principal); N63.20 Unspecified lump in the left breast, unspecified quadrant; Z79.899 Other long term (current) drug therapy
CPT/HCPCS: 36415; 71046; 80048; 84703; 85025